=== PATIENT | female | born 1960 | race Caucasian/White ===

== ENCOUNTER 2023-09-06 06:15 | Emergency (ER) | payer MEDICAID ==
[~2023-09-06] VITALS: Ht 160 cm; Wt 86.4 kg
[~2023-09-06 06:15] MED LIST: HYDR-2601; PENI500T2; RANI-226; SIMV10TA20
[2023-09-06] MEDS: ONDANSETRON ODT 4 MG TAB PO ONE (06:47)
[2023-09-06] MEDS ORDERED: ZOFR4T PO (06:50)
[2023-09-06] MEDS ORDERED: MECL25CH85 PO (06:50)
[2023-09-06 07:00] VITALS: PULSE 79; RESP 16; O2SAT 98
[2023-09-06 07:05] LABS: Basophils # (auto) 0 10 ^3/uL (0-0.2); Basophils % (auto) 0.8 % (0.0-2.0); Eosinophils # (auto) 0.2 10 ^3/uL (0-0.8); Hematocrit 45.3 % (36.0-46.0); Hemoglobin 14.6 g/dL (12.2-16.2); Lymphocytes # (auto) 1.3 10 ^3/uL (0.4-5.4); Lymphocytes % (auto) 24.4 % (10.0-50.0); Mean Corpuscular Hemoglobin 28.6 pg (28.0-32.0); Mean Corpuscular Hgb Conc. 32.2 g/dL (32.0-36.0); Mean Corpuscular Volume 88.7 fL (80.0-100.0); Monocytes # (auto) 0.5 10 ^3/uL (0-1.3); Monocytes % (auto) 9.1 % (0.0-12.0); Neutrophils # (auto) 3.2 10 ^3/uL (1.6-8.6); Neutrophils % (auto) 62.7 % (37.0-80.0); Nucleated Red Blood Cells % 0.2 %; Red Cell Distribution Width 13.9 % (11.8-14.3); White Blood Cell 5.1 10^3/uL (4.4-10.8)
[2023-09-06 07:17] LABS: Urine Bacteria FEW /hpf (None Seen); Urine Blood Negative /uL (Negative); Urine Budding Yeast OCCASIONAL /hpf (None Seen); Urine Clarity Cloudy (Clear); Urine Color Yellow (Yellow); Urine Protein, UAD Negative (Negative); Urine Specific Gravity 1.033 (1.001-1.035); Urine Urobilinogen Normal (Negative); Urine WBC 46 /hpf (0 - 5)
[2023-09-06 07:21] LABS: Chloride 107 mmol/L (98-107); Potassium 3.7 mmol/L (3.5-5.1); Sodium 140 mmol/L (136-145)
[2023-09-06 07:22] LABS: Anion Gap 6 (5-15); Carbon Dioxide 27 mmol/L (20-30)
[2023-09-06 07:23] LABS: Calcium 9.5 mg/dL (8.7-10.4)
[2023-09-06 07:25] VITALS: PULSE 65; RESP 16; TEMP 97.7; O2SAT 100
[2023-09-06 07:28] LABS: BUN/Creatinine Ratio 21.6 (10.0-20.0); Blood Urea Nitrogen 16 mg/dL (9-23); Glucose 182 mg/dL (74-106)
[2023-09-06] MEDS ORDERED: NITR-87 PO (07:50)
[2023-09-06 08:30] VITALS: BP 125/60; PULSE 70; RESP 16; O2SAT 100
== END 2023-09-06 08:44 | disposition home or self-care (01) ==
LOC: ER 06:15
DX: R42 Dizziness and giddiness (principal); N39.0 Urinary tract infection, site not specified; E11.9 Type 2 diabetes mellitus without complications; E78.5 Hyperlipidemia, unspecified; Z90.49 Acquired absence of other specified parts of digestive tract; Z79.2 Long term (current) use of antibiotics; Z79.899 Other long term (current) drug therapy
CPT/HCPCS: 36415; 70450; 80048; 81001; 85025; 99284; Q0162